=== PATIENT | male | born 1990 | race Two or more races ===

== ENCOUNTER 2025-10-31 02:58 | Emergency (ER) | payer MEDICAID, SELFPAY ==
[2025-10-31 02:59] VITALS: BP 121/82; PULSE 81; RESP 18; TEMP 36.7; O2SAT 95
--- NOTE | 2025-10-31 03:14 | EDNOTE_ITS ---
ED Dental RME/HPI General Chief complaint: Dental/Oral/Throat Stated complaint: DENTAL PAIN Time Seen by Provider: 10/31/25 03:16 Arrival date/time: 10/31/25 02:58 RME / HPI RME / HPI Narrative: See [facility] for Dr. Gar's HPI Documentation. Related Data Previous Rx's ?Medication ?Instructions ?Recorded acetaminophen 300 mg-codeine 30 mg 2 tab PO Q8H PRN pa in #20 tabs 10/31/25 tablet amoxicillin 875 mg-potassium 1 tab PO BID #20 tabs clavulanate 125 mg tablet Allergies Allergy/AdvReac Type Severity Reaction Status Date / Time No Known Allergies Allergy Verified 10/31/25 03:00 Review of Systems Review of Systems Systems Reviewed: All systems reviewed, normal except as documented Past Medical History Social History SMOKING STATUS: Never smoker ED Exam Narrative Physical exam: See [facility] for Dr. Gar's Physical Exam Documentation. Course Quality Measures none Orders Category Date Time Status ACETAMINOPHEN w/COD 300-30 [Tylenol w/Cod #3] Med 10/31/25 03:12 Discontinued 2 tab PO X1 ONE Amoxicillin/Pot Clav 875 [Augmentin 875] Med 10/31/25 03:12 Discontinued 1 tab PO X1 ONE Vital Signs Vital signs: Vital Signs Temperature 98.0 F 10/31/25 02:59 Pulse Rate 81 10/31/25 02:59 Respiratory Rate 18 10/31/25 02:59 Blood Pressure 121/82 10/31/25 02:59 Pulse Oximetry (%) 95 10/31/25 02:59 Oxygen Delivery Method Room Air 10/31/25 02:59 Dental / Oral MDM Narrative [facility] Narrative:: This section includes all my notes and documentations, including HPI, PE, and ED course. Gunnar Gar MD HPI: 34 y/o male here with several days of dental pain. No fever or chills or aches or malaise. No other complaints. ROS: All negative except as documented in HPI. Physical Exam: General: Alert and oriented. Appears uncomfortable. Eyes: Conjunctivae and lids clear. ENT: No nasal congestion. In the mouth, diffuse dental caries noted with ed ematous gums with erythema and calor and tenderness. Neck: Supple. Lungs: No respiratory distress. Skin: Warm and dry. Neuro: Alert and oriented X 3. At this point, diagnoses include: Infected Dental Caries Treatment here included: Two Tylenol #3 Augmentin 875 mg Recommended outpatient dental treatment. Based on my best medical judgment, made decision no further evaluation or treatment indicated at this time. Patient understands and agrees to the discharge instructions customized and printed, see below. Discharge Instructions from Dr. Gar: -- After evaluation, your dental pain is due to an underlying infection.?? -- Take Augmentin to help kill the germs causing your infection.? Unless we treat the underlying infection, pain medications won?t work.?? -- Ibuprofen 800 mg every 6-8 hours today and tomorrow to decrease inflammation then as needed. -- Tylenol with codeine for severe pain. -- Apply jszo-pyh-orcrosh lidocaine as needed.? Soak Lidocaine in a gauze and apply in the area of pain for 15 minutes to help the pain for few hours. -- Most importantly, see a dentist of your choice on 11/01/2025 for definitive treatment you need not available in the ER.? You will need to call dental offices in all surrounding towns to find a dentist who can see you and treat you right away.? -- Seek immediate medical care with fever or with any concerns. Gunnar Gar MD Patient data External records reviewed:: [facility] previous records (No prior ED records available for review.) Clinical information provided by:: patient Social determinants that could affect healthcare access:: none Patient has the following chronic illnesses:: None reported. How is presenting disease/condition affected by chronic disease/condition?: no chronic disease Evaluation data The following diagnostics were reviewed and interpreted by me:: other (specify) (N/A) Lab and/or radiology exams considered but not ordered:: None Interpretation Summary: None Medications / Prescriptions Medications or Prescriptions considered but not ordered:: None Medication administrations:: Medication Administration History Discontinued Medications Acetaminophen/Codeine Phosphate (Acetaminophen W/Cod 300-30 Tablet) 2 tab PO X1 ONE Stop: 10/31/25 03:13 Last Admin: 10/31/25 03:27 Dose: 2 tab Documented By: SE Amoxicillin/Clavulanate Potassium (Amoxicillin/Pot Clav 875 Tablet) 1 tab PO X1 ONE Stop: 10/31/25 03:13 Last Admin: 10/31/25 03:28 Dose: 1 tab Documented By: SE Two Tylenol #3 Augmentin 875 mg Consultations Consultation(s) initiated? (list below): No Diagnosis Dental Differential Diagnosis: gingival abscess, dental caries, toothache, dental abscess, fracture of tooth and aphthous ulcer Most likely diagnosis given after review of the tests above:: Infected Dental Caries Admission Indicated Admission indicated?: not indicated Explain why admission is indicated or not indicated:: With no condition needing emergent intervention, there was no indication for admission. Admission Request Was there a request for admission?: No Disposition Plan Disposition Plan: Discharge Discharge Attestation Discharge Attestation: The patient and all family members were given an opportunity to ask questions and understood the discharge instructions. Discharge instructions specifically effects, indications for sooner follow up or return to the emergency department, and the expected course of current diagnosis. Patient condition: Stable Discharge Plan Plan Patient Disposition: HOME (Self Care) Prescriptions/Referrals Prescriptions/Med Rec: New acetaminophen-codeine 300-30 mg tablet 2 tab PO Q8H MDD 6 PRN (Reason: pain) Qty: 20 0RF amoxicillin-pot clavulanate 875-125 mg tablet 1 tab PO BID Qty: 20 0RF Problem List Clinical Impression: Infected dental caries Patient/Caregiver Discharge Instructions Discharge Activity: activity as tolerated Education Materials: ED Dental Cavity, ED Dental Abscess Additional Instructions: Instrucciones de mahamed del Dr. Gar: -- Tras la evaluaci?n, [place] dolor dental se debe a shell infecci?n subyacente. -- [place] Augmentin para eliminar los g?rmenes que causan la infecci?n. Si no tratamos la infecci?n subyacente, los analg?sicos no ser?n efectivos. -- [place] Ibuprofeno de 800 mg cada 6-8 horas hoy y ma?marilynn para reducir la inflamaci?n, y luego seg?n sea necesario. -- [place] Tylenol con code?na para el dolor intenso. -- Aplique lidoca?na de venta darlene seg?n sea necesario. Empape shell gasa con lidoca?na y apl?quela en la sheryl del dolor robe 15 minutos para aliviar el dolor robe unas horas. -- Lo m?s importante: consulte con un dentista de [place] elecci?n el 01/11/2025 para recibir el tratamiento definitivo que necesita y que no est? disponible en la scar de emergencias. Deber? llamar a las cl?nicas dentales de las ciudades cercanas para encontrar un dentista que pueda atenderle y tratarle de inmediato. -- Busque atenci?n m?dica inmediata si presenta fiebre o cualquier otra p reocupaci?n. Discharge Instructions from Dr. Gar: -- After evaluation, your dental pain is due to an underlying infection.?? -- Take Augmentin to help kill the germs causing your infection.? Unless we treat the underlying infection, pain medications won?t work.?? -- Ibuprofen 800 mg every 6-8 hours today and tomorrow to decrease inflammation then as needed. -- Tylenol with codeine for severe pain. -- Apply [id number] lidocaine as needed.? Soak Lidocaine in a gauze and apply in the area of pain for 15 minutes to help the pain for few hours. -- Most importantly, see a dentist of your choice on 11/01/2025 for definitive treatment you need not available in the ER.? You will need to call dental offices in all surrounding towns to find a dentist who can see you and treat you right away.? -- Seek immediate medical care with fever or with any concerns. Print Language: Bol[place]ian Stand Alone Forms: Amber Award Info., Patient Portal Info Letter
[2025-10-31] MEDS: ACETAMINOPHEN w/COD 300-30 TABLET 2 TAB PO (03:27)
[2025-10-31] MEDS: AMOXICILLIN/POT CLAV 875 TABLET 1 TAB PO (03:28)
== END 2025-10-31 04:04 | disposition home or self-care (01) ==
LOC: SERX 03:24
PROVIDERS: Emergency Provider Emergency Medicine; PCP Family Medicine
DX: K02.9 Dental caries, unspecified (principal)
CPT/HCPCS: 99281; A9270